=== PATIENT | female | born 1970 | race Caucasian/White ===

== ENCOUNTER 2019-05-08 15:52 | Outpatient (REF) | payer OTHER, SELFPAY ==
--- NOTE | 2019-05-08 15:15 | PAPFT_PTH ---
PATIENT: Alma Delia Fleming LOC: [facility] U#:[id number] AGE/SX: 49/F ROOM: RE05/08/[address]: Marlena Jerry MD : 1970 BED: DIS: 05/08/2019 SPEC #: [id number] RECD: 05/09/19 12:48 STATUS: GEREMIAS REQ #: [id number] CINTHYA: 05/08/19 15:[address]: Marlena Wayne DEPT: [facility] Cytology RECD BY: Sue Wallis ENTERED: 05/09/19 12:48 SP TYPE: PAPFT OTHR DR: Maikel Worthy, DO Tissues: 1 - CX/ENDOCX FOR PAP SMEARS Procedures: PAP THIN PREP/UVM Screening HPV DNA PROBE Comments: [id number]
== END 2019-05-08 16:12 ==
LOC: LBN 15:52
PROVIDERS: PCP Emergency Medicine; Visit Provider Internal Medicine
DX: Z12.4 Encounter for screening for malignant neoplasm of cervix (principal)
CPT/HCPCS: 88142; 87624

== ENCOUNTER 2019-05-16 07:15 | Outpatient (CLI) | payer OTHER, SELFPAY ==
[2019-05-16 08:46] LABS: Abs Immature Grans 0.01 k/cumm (0.0-0.09); Absolute Basophil Count 0.03 k/cumm (0.0-0.2); Absolute Eosinophil Count 0.08 k/cumm (0.0-0.7); Absolute Lymphocyte Count 1.41 k/cumm (1.2-3.4); Absolute Monocyte Count 0.42 k/cumm (0.11-0.7); Absolute Neutrophil Count 3.75 k/cumm (1.2-6.7); Basophils % 0.5; Eosinophils % 1.4; HGB 14.5 g/dL (12.0-15.5); Immature Grans % 0.2 %; Lymphocytes % 24.7; Mean Corpuscular Hemoglobin 30.5 pg (27.0-33.0); Mean Corpuscular Volume 92.4 fL (80-95); Mean Platelet Volume 9.8 fL (8.0-11.0); Monocytes % 7.4; Neutrophils % 65.8; Platelet Count 331 x1000/uL (130-400); RBC 4.76 m/cumm (4.00-5.20); RBC Distribution Width 12.7 % (11.7-14.6)
[2019-05-16 09:29] LABS: ESR 16 mm/hr (0-30)
[2019-05-16 09:43] LABS: ALT 18 U/L (14-59); AST 12 U/L (15-37); Albumin 3.9 g/dL (3.4-5.0); Alkaline Phosphatase 130 U/L (46-116); Anion Gap 10.9 mmol/L (3-11); BUN 16 mg/dL (7-18); Bilirubin, Total 0.4 mg/dL (0.2-1.0); CO2 27.1 mmol/L (21.0-32.0); CREATININE 0.89 mg/dL (0.55-1.02); Calcium 9.5 mg/dL (8.5-10.1); Chloride 105 mmol/L (98-107); Glucose 86 mg/dL (74-106); Potassium 4.1 mmol/L (3.5-5.1); Sodium 143 mmol/L (136-145); Total Protein 7.3 g/dL (6.4-8.2)
== END 2019-05-16 07:35 ==
PROVIDERS: PCP Emergency Medicine; Visit Provider Internal Medicine
DX: R19.00 Intra-abdominal and pelvic swelling, mass and lump, unspecified site (principal); R50.9 Fever, unspecified
CPT/HCPCS: 36415; 80053; 85652; 85025

== ENCOUNTER 2019-05-30 01:02 | Outpatient (CLI) | payer OTHER, SELFPAY ==
--- NOTE | 2019-05-30 08:28 | DI.CT_ITS ---
EXAM: CT ABDOMEN PELVIS WO/W CLINICAL HISTORY: PELVIC MASS,HEMATURIA, R31.9 TECHNIQUE: The exam was performed according to the usual protocol. COMPARISON: No exams were available for comparison FINDINGS: CT examination of the abdomen and pelvis was performed prior to and following intravenous infusion of 100 cc of Omnipaque 350 and ingestion of dilute barium. Noncontrast scan shows no evidence of urinary tract calcification. Images obtained through the lung bases are unremarkable. The liver, spleen, and pancreas appear norm al. Gallbladder and bile ducts are CT normal. Abdominal aorta is of normal diameter and no major va scular abnormality is seen. No significant abdominal wall hernia. No abdominal or pelvic adenopathy . Appendix is normal. No evidence of diverticulitis or bowel obstruction. No free fluid identified in the pelvis. Uterus is markedly enlarged, heterogeneous, and lobular in a ppearance, with multiple dense calcifications consistent with uterine fibroid. No ovarian mass ident ified by CT criteria. The cervix may be enlarged, fibroid versus other etiology. No abnormality of the recto sigmoid seen. No abnormality of the urinary bladder. IMPRESSION: Markedly enlarged uterus with appearance consistent with multiple uterine fibroids by CT criteria. N onspecific enlargement of the cervix, fibroid versus other neoplastic etiology not excluded. CUSTOMER SERVICE LEADER consult recommended and additional evaluation with ultrasound and/or MR of the pelvis may be cons idered to further characterize the uterine and cervical abnormalities and exclude ovarian pathology.
[2019-05-30] MEDS: Omnipaque 350 MG/ML 100 ML BTL IJ (08:38)
[2019-05-30] MEDS: Omnipaque 350 MG/ML 50 ML BTL IJ (08:40)
== END 2019-05-30 01:22 ==
PROVIDERS: PCP Emergency Medicine; Visit Provider Internal Medicine
DX: R10.2 Pelvic and perineal pain (principal); R19.09 Other intra-abdominal and pelvic swelling, mass and lump; R31.9 Hematuria, unspecified; N85.2 Hypertrophy of uterus; D25.9 Leiomyoma of uterus, unspecified
CPT/HCPCS: 74178; J3490; Q9967

== ENCOUNTER 2019-06-27 08:22 | Outpatient (CLI) | payer OTHER, SELFPAY ==
[2019-06-27 08:51] LABS: HCT 42.4 % (36.0-46.0); HGB 14.3 g/dL (12.0-15.5); Mean Corp. HGB Concentration 33.7 g/dL (32.0-36.0); Mean Corpuscular Hemoglobin 30.8 pg (27.0-33.0); Mean Corpuscular Volume 91.4 fL (80-95); Mean Platelet Volume 9.6 fL (8.0-11.0); Platelet Count 267 x1000/uL (130-400); RBC 4.64 m/cumm (4.00-5.20); RBC Distribution Width 12.8 % (11.7-14.6); White Blood Cell Count 5.41 k/cumm (4.4-10.8)
== END 2019-06-27 08:42 ==
PROVIDERS: PCP Emergency Medicine; Visit Provider Obstetrics & Gynecology Gynecology
DX: D25.9 Leiomyoma of uterus, unspecified (principal); Z01.818 Encounter for other preprocedural examination; Z01.812 Encounter for preprocedural laboratory examination
CPT/HCPCS: 36415; 85027; 86850; 86900; 86901

== ENCOUNTER 2019-07-05 16:49 | Observation (INO) | payer OTHER, SELFPAY ==
[2019-06-27 07:49] VITALS: BP 137/77; PULSE 77; RESP 18; TEMP 36.2; O2SAT 97
[2019-07-05] VITALS (13 sets, daily range): BP systolic 80–148; BP diastolic 46–84; PULSE 68–90; RESP 15–22; TEMP 35–37.1; O2SAT 95–100
[2019-07-05] MEDS: Lactated Ringers 1,000 ML 125 ML IV ×3 (09:36→18:22)
[2019-07-05] MEDS: ceFAZolin 2 GM/50 ML BAG IVPB (12:02)
--- NOTE | 2019-07-05 14:50 | UTER_PTH ---
PATIENT: Alma Delia Fleming LOC: U#:[id number] AGE/SX: 49/F ROOM: 214 RE07/05/[address]: Ruby Zelaya : 1970 BED: A DIS: 07/06/2019 SPEC #: [id number] RECD: 07/05/19 16:53 STATUS: GEREMIAS REQ #: [id number] CINTHYA: 07/05/19 14:[address]: Ruby Zelaya DEPT: Surgical Specimen RECD BY: Sue Wallis ENTERED: 07/05/19 16:54 SP TYPE: UTER OTHR DR: Maikel Worthy DO Tissues: 1 - UTERUS W OR W/O OVARIES(NOT TUMOR/PROLAPSE) Procedures: GROSS AND MICRO LEVEL 5 DECALCIFICATION Comments: [id number]
--- NOTE | 2019-07-05 17:52 | ROE_ITS ---
Date of service: 07/05/19 Time of Service: 17:52 Operative Note Operative Note DATE OF PROCEDURE: 07/05/19 PRE-OP DIAGNOSIS: Symptomatic fibroid uterus POST-OP DIAGNOSIS: same PROCEDURE: Laparoscopic-assisted vaginal hysterectomy and bilateral salpingectomy with bladder cystoscopy SURGEON: Ruby Zelaya MENTAL RETARDATION NURSE: Serafin Westfall ANESTHESIA: GETA and other (Nerve block performed by anesthesia to control postop pain) ESTIMATED BLOOD LOSS: 600 PATHOLOGY: other (Cervix uterus fragments of uterine fibroid and fallopian tubes to pathology) COMPLICATIONS: None Patient was transported to: PACU Patient's condition: stable Indications: 49-year-old female with an enlarged uterus becoming increasingly symptomatic preventing her from being comfortable performing activities of daily living. Findings: Normal size uterus with a globular fundal mass consisting of multiple small fibroids. Overall dimensions of the uterus and fibroid approximately 13 cm in length 8 cm in width. 2 small simple appearing follicular cysts on each ovary respectively normal-appearing fallopian tubes. Normal appendix normal upper abdomen. Procedure Description: Patient was taken to the operating room where she was placed in the sitting position and anesthesia performed a nerve block for the purpose of controlling postop pain. The patient was then placed in the dorsal supine position and general endotracheal anesthesia administered without difficulty. She was prepped and draped in the usual sterile fashion a surgical timeout was performed confirmed that she had SCDs in place and that she received preoperative antibiotics. A Aldrich catheter was inserted to gravity drainage bivalve speculum was placed in the vagina and the anterior lip of the cervix was grasped with single-tooth tenaculum a Pelosi uterine manipulator was then inserted into the uterus attached to the single-tooth tenaculum and left in place. Attention was turned to the patient's abdomen where the inferior portion of the umbilicus was infiltrated with quarter percent Marcaine without epinephrine and a vertical incision skin incision was made with a scalpel and the umbilical fold. There is through this incision a varies needle was introduced with a drop in carbon dioxide pressure indicating intra-abdominal placement. A 12 mm Visiport was then inserted through the incision but were unable to initially placed into the abdomen the port was removed and reinserted under direct visuali zation and intra-abdominal placement was confirmed. Patient was placed in Trendelenburg and the abdomen was carefully inspected with the above-noted findings. Under direct visualization two 5 mm trochars were placed approximately 3 cm medial to the left and right superior anterior iliac crests respectively. The right and left ureters were located and noted to be remote from the operative field. 5 mm endoscopic tenaculum was used to grasp the most cephalad portion of the fibroid and a LigaSure electrocautery device was then used to grasp, cauterize and transect the right fallopian tube at the uterine cornua. The site where the endoscopic tenaculum was used to grasp the fibroid bled during the laparoscopic portion of the procedure. The right round ligament and segments of the right broad ligament both anterior and posterior portions was sequentially clamped cauterized and transected to the level of the uterosacral ligaments. The right portion of the vesicouterine peritoneum was incised tented up and gently dissected off of the lower uterine segment approximately half the distance of the lower uterine segment. A similar technique was carried out on the contralateral left fallopian tube, round ligament and left broad ligament. The vesicouterine peritoneum was incised and gently dissected off of the lower uterine segment. It was decided to proceed with the vaginal portion of the case. The endoscopic instruments were removed and the trochars left in place pneumoperitoneum was reduced and the uterine manipulator was removed from the uterus. A weighted vaginal speculum was inserted into the vagina and the body of the cervix was infiltrated with 1% lidocaine with a dilute solution of epinephrine in a circumferential fashion. Bovie electrocautery device was then used to incise along the site that had been infiltrated. This allowed blunt dissection into the posterior cul-de-sac a weighted vaginal speculum was inserted through this incision. The vesicle cervical fascia was bluntly dissected off of the anterior of the cervix until sufficient mobilization had allowed the anterior cul-de-sac to be entered sharply with Metzenbaum scissors. Through this incision a right angle retractor was placed to retract the bladder away from the operative field. The right uterosacral ligament was clamped transected and suture-ligated and held followed by the right broad ligament. Similar procedure was carried out on the contralateral uterosacral ligament and broad ligament. The left uterine cornua was clamped transected and suture-ligated. The pedicle was noted to be hemostatic similar technique was carried out on the contralateral uterine cornua both the right and left fallopian tubes were located clamped, suture ligated, and transected. This allowed direct access to the fundal fibroid which was then grasped with single-tooth tenaculums and subsequently morcellated with a scalpel with wedge dissections of fibroid tissue removed sequentially with care taken to protect the vaginal anterior and posterior and lateral vaginal turcios. Shortly after the morcellation began the uterus was detached from the body of the fibroid and passed off of the operative field. The remaining time was spent in scalpel morcellation of the uterine fibroid. Once fibroid had been removed in its entirety the uterosacral and broad ligament pedicles were inspected and found to be hemostatic. The vaginal cuff was closed with a running lock suture of 0 Vicryl in a vertical fashion. At the level of the uterosacral ligaments the uterosacral ligament pedicle was suture-ligated to the upper portion of the uterosacral ligament using the previously sutured 0 Vicryl. The remaining vaginal cuff was closed with a continuous suture of 0 Vicryl in a locked fashion. Indigocarmine was administered to the IV bladder cystoscopy was performed despite ample time for in the indigocarmine to be observed we were unable to note the E flux of indigocarmine through the right and left urethral orifices. There was however evidence of reflux from both orifices as noted with cystoscopy. Aldrich catheter was reinserted to gravity drainage Attention was then turned to the abdomen after sterile gloves have been changed pneumoperitoneum was reestablished and the laparoscope was reinserted and the abdominal and pelvic cavity carefully inspected. The vaginal cuff was closed and hemostatic as was the right and left adnexal pedicles. There was clotted blood along the omentum at the liver margin that was aspirated irrigated but no evidence of active bleeding. Same was true of the pelvis which is copiously irrigated with normal saline and noted to be hemostatic. Under direct visualizations both 5 mm trochars were removed and pneumoperitoneum reduced 12 mm umbilical trocar removed and the fascia reapproximated with 2 sutures of 0 Vicryl the skin of all trocar sites was closed with a subcuticular closure of 3- 0 Monocry and covered with skin glue. Patient was then placed in the dorsal supine position awakened extubated and transported to recovery area in stable condition all sponge lap needle counts correct x2
[2019-07-05] MEDS: Ketorolac 30 MG/ML VIAL IVP (19:29)
[2019-07-05] MEDS: Docusate Sodium 100 MG CAP PO (19:30)
[2019-07-05] MEDS: Normal Saline Flush 10 ML SYR IV (19:30)
--- NOTE | 2019-07-05 20:59 | NUR.NOTE ---
Nursing Note: At 1740 hrs., Pt received from PACU staff post op vaginal hysterectomy assisted by laparoscopy Pale looking, verbalized seeing double vision. B/P was low initial result was 88/54., drowsy and with slurred speech noted. turkish line attendant was notified. NS IV Bolus of 500 cc completed. Spouse was on bedside. Pt able to moved lower extremities w/out pain or discomfort. Continuous POx inplaced.. At 1830 , B/P 91/53.,pt is more awake, able to opened both eyes.abdominal trochar sites is , dry and intact. No vaginal bleeding offered. Continue to monitor.
[2019-07-06] VITALS (8 sets, daily range): BP systolic 106–119; BP diastolic 56–70; PULSE 70–80; RESP 16–18; TEMP 36.6–37.2; O2SAT 96–100
[2019-07-06] MEDS: Normal Saline Flush 10 ML SYR IV ×2 (00:10→06:02)
[2019-07-06] MEDS: Ketorolac 30 MG/ML VIAL IVP ×2 (00:11→06:02)
[2019-07-06] MEDS: Lactated Ringers 1,000 ML 125 ML IV (01:55)
[2019-07-06 07:06] LABS: HCT 34.7 % (36.0-46.0); HGB 11.3 g/dL (12.0-15.5); Mean Corp. HGB Concentration 32.6 g/dL (32.0-36.0); Mean Corpuscular Hemoglobin 29.8 pg (27.0-33.0); Mean Corpuscular Volume 91.6 fL (80-95); Mean Platelet Volume 10.4 fL (8.0-11.0); Platelet Count 228 x1000/uL (130-400); RBC 3.79 m/cumm (4.00-5.20); RBC Distribution Width 12.5 % (11.7-14.6); White Blood Cell Count 16.07 k/cumm (4.4-10.8)
[2019-07-06 07:23] LABS: ALT 15 U/L (14-59); AST 14 U/L (15-37); Albumin 3.2 g/dL (3.4-5.0); Alkaline Phosphatase 100 U/L (46-116); BUN 12 mg/dL (7-18); Bilirubin, Total 0.3 mg/dL (0.2-1.0); CREATININE 0.87 mg/dL (0.55-1.02); Calcium 8.5 mg/dL (8.5-10.1); Chloride 107 mmol/L (98-107); Glucose 107 mg/dL (74-106); Sodium 141 mmol/L (136-145); Total Protein 6.1 g/dL (6.4-8.2)
[2019-07-06] MEDS: Docusate Sodium 100 MG CAP PO (08:29)
[2019-07-06] MEDS: Acetaminophen 500 MG TAB PO (08:29)
--- NOTE | 2019-07-06 09:35 | DSE_ITS ---
Date of service: 07/06/19 Time of Service: 09:35 DS: Diagnosis Discharge Diagnosis (1) Uterine fibroid: Status: Acute (2) History of laparoscopic-assisted vaginal hysterectomy: Status: Acute (3) H/O bilateral salpingectomy: Status: Acute Discharge Plan Disposition Patient Disposition: HOME Condition: Good Discharge Details Reason For Visit: LAPAROSCOPIC ASSISTED VAGINAL HYSTERECTOMY Admit Date/Time: 07/05/19 16:49 Admit Provider: Ruby Zelaya Attending Provider: Ruby Zelaya Primary Care Provider: Maikel Worthy Hospital Course Hospital Course: Patient is a 49-year-old G0 female admitted the morning of surgery for a laparoscopic-assisted vaginal hysterectomy uterine fibroid morcellation through the vagina and the bilateral salpingectomy. Surgery was uncomplicated the fibroid specimen was removed and multiple small pieces. Ovaries ovaries were grossly normal. Postop course was uncomplicated. She was tolerating a regular diet ambulating without difficulty and voiding spontaneously at the time of discharge. Pain was well controlled with NSAIDs. Plan at this time is to discharge her to home follow-up in the office in 2 weeks with the plan for prescription of Percocet 5/325 1 to 2 tablets every 6 hours as needed for pain #7 dispensed ibuprofen 600 mg every 6 hours as needed for pain. Home Meds and New Rx's Prescriptions: No Action magnesium 250 mg tablet 500 mg PO BID RF: 0 d-mannose Powder PO DAILY RF: 0 lysine [L-Lysine] 500 mg Tablet 1 mg PO DAILY RF: 0 Discharge Instructions Instructions: Laparoscopic Hysterectomy (DC) Stand Alone Forms: [facility] Post Gynecology Surgery, Nursing Discharge Form Referrals: Ruby Zelaya MD [ [facility] STAFF PHYSICIAN] - (appointment made directly with patient) Activity:: Activity as Tolerated Equipment/Supplies:: No Equipment Needed Diet:: As Tolerated Discharge Orders Discharge Orders: Discharge Order (Routine); Ordered 07/06/19 Ordered By: Ruby Zelaya Discharge Data Discharge Date/Time-TO BE ENTERED AT DEPARTURE: 07/06/19 10:51 DS: Summary Status at Discharge Functional status at discharge: independent ambulation Overall status at discharge: patient is back to baseline Mental Status: mental status grossly normal Speech and Movement: speech and movement normal Mood: congruent mood Affect: normal affect Exam Psych Mental Status: mental status grossly normal Speech and Movement: speech and movement normal Mood: congruent mood Affect: normal affect DS: Data Vitals/I&O Vitals and I&O: Vital Signs Temperature 99.0 F 07/06/19 07:37 Temperature Source Tympanic 07/06/19 07:37 Pulse 70 07/06/19 07:37 Pulse Rhythm Regular 07/06/19 00:15 Respiratory Rate 17 07/06/19 07:37 Respiratory Effort 07/06/19 00:15 Respiratory Depth Normal 07/06/19 00:15 Respiratory Pattern Normal 07/06/19 00:15 Blood Pressure 119/70 07/06/19 07:37 Pulse Oximetry 100 07/06/19 07:37 Respiratory End-tidal CO2 32 07/05/19 17:30 Oxygen Delivery Method Room Air 07/06/19 07:37 Oxygen Flow Rate 0 07/06/19 07:37 Pain Level 2 07/06/19 08:29 Comment 07/06/19 06:05 Intake & Output 07/05/19 07/05/19 07/06/19 11:59 23:59 11:59 Intake Total 2049 1200 / 1200 Output Total 2099 1375 / 1375 Balance -50 / -50 -175 / -175 Weight 151 lb 3.794 oz Intake: IV 2049 Oral 1200 / 1200 Output: Urine 1500 / 1500 1375 / 1375 Estimated Blood Loss 600 / 600 Other: Urine Color Yellow Pale Urine Appearance Clear Clear Comment blueish green tint d/t dye. very light blue from dye. 1st void after rush out Emesis Description None Voiding Methods Toilet Data Completed and Pending Labs on day of discharge: Labs from last 24 hours 07/06/19 07/06/19 06:32 06:32 WBC 16.07 H RBC 3.79 L Hgb 11.3 L Hct 34.7 L MCV 91.6 MCH 29.8 MCHC 32.6 RDW 12.5 Plt Count 228 MPV 10.4 Sodium 141 Potassium 4.0 Chloride 107 Carbon Dioxide 28.0 Anion Gap 6.0 BUN 12 Creatinine 0.87 Estimated GFR/1.73 m2 >= 60.00 Glucose 107 H Calcium 8.5 Total Bilirubin 0.3 AST 14 L ALT 15 Alkaline Phosphatase 100 Total Protein 6.1 L Albumin 3.2 L [facility] Medical History History of asthma (Acute) Uterine fibroid (Acute) Enlarged. Pt wants hysterectomy Surgical History (Updated 07/06/19 @ 09:36 by Ruby Zelaya MD) H/O bilateral salpingectomy (Acute) At the time of the vaginal hysterectomy History of laparoscopic-assisted vaginal hysterectomy (Acute) Hx of tubal ligation (Chronic) Hx of wisdom tooth extraction (Acute) Social History Smoking/Tobacco Use Status: Never Alcohol Intake: current Alcohol Intake frequency: holidays/special occasions only Alcohol type: beer Drug use: Never Substance use type: does not use Do you feel safe at home: Yes Do you feel safe in your relationship?: Yes
== END 2019-07-06 10:51 | disposition home or self-care (01) ==
LOC: MS 18:00
PROVIDERS: Admitting Provider Obstetrics & Gynecology Gynecology; PCP Emergency Medicine; Visit Provider Obstetrics & Gynecology Gynecology
PROC: 0UT9FZZ Resection of Uterus, Via Natural or Artificial Opening With Percutaneous Endoscopic Assistance (ICD-10-PCS; CPT 58554; principal; 2019-07-05 09:30)
DX: D25.9 Leiomyoma of uterus, unspecified (principal); N80.0 Endometriosis of uterus; N83.8 Other noninflammatory disorders of ovary, fallopian tube and broad ligament; N70.11 Chronic salpingitis; G89.18 Other acute postprocedural pain; N83.02 Follicular cyst of left ovary; N83.01 Follicular cyst of right ovary
CPT/HCPCS: 58554; 36415; 80053; 85027; NC; 88307; 88311; G0378; J0690; J1100; J1885; J1941; J2001; J2250; J2405; J2704; J3010

== ENCOUNTER 2020-10-19 12:12 | Outpatient (REF) | payer BC, SELFPAY ==
--- NOTE | 2020-10-19 12:15 | DI.RAD_ITS ---
Exam(s) XR LUMBAR SPINE COMPLETE EXAM: XR LUMBAR SPINE COMPLETE CLINICAL HISTORY: lumbar pain. TECHNIQUE: 2D digital imaging was performed. COMPARISON: No exams were available for comparison FINDINGS: There are 5 lumbar type vertebral bodies. No spondylolysis or spondylolisthesis. At L4-5, there is disc space narrowing, subchondral sclerosis and endplate osteophytes. Degenerative changes of the fa cets are seen at L4-5 and L5-S1. No acute fracture or subluxation is present. Soft tissues are unre markable. IMPRESSION: Degenerative changes in the lumbar spine. DATA REPOSITORY: RADIATION DOSE DELIVERED:
--- NOTE | 2020-10-19 13:25 | DI.VRAD_ITS ---
PROCEDURE INFORMATION: Exam: XR Lumbosacral Spine Exam date and time: 10/19/2020 12:26 PM Age: 50 years old Clinical indication: Other: Lumbar pain TECHNIQUE: Imaging protocol: XR of the lumbosacral spine. Views: 4 or 5 views. COMPARISON: No relevant images were readily available for comparison purposes. FINDINGS: Bones/joints: Lumbar vertebral body heights are well maintained. Alignment is well preserved without significant listhesis. Bony degenerative changes are minimal. Soft tissues: Unremarkable. IMPRESSION: Minimal bony degenerative changes lumbar spine without acute findings evident. Dictated and Authenticated by: Clive Marrero MD. Ordering:KAREN Penaloza MD
== END 2020-10-19 12:32 ==
LOC: DI 12:12
PROVIDERS: PCP Emergency Medicine; Visit Provider Nurse Practitioner Family
DX: M54.5 Low back pain (principal); M51.36 Other intervertebral disc degeneration, lumbar region; M47.817 Spondylosis without myelopathy or radiculopathy, lumbosacral region
CPT/HCPCS: 72110

== ENCOUNTER 2020-10-19 12:29 | Emergency (ER) | payer SELFPAY ==
--- NOTE | 2020-10-19 12:35 | W.ED.FU ---
Patient was referred to the hospital from urgent care for x-ray. Was accidentally set up in the emergency department for further visit. Patient is not requesting a ED evaluation here but is here for the imaging as was ordered on outpatient basis. She was made aware that she may come to the ER for further evaluation at any time. Patient ultimately entered in error.
== END 2020-10-19 12:35 ==
LOC: ER 12:56
PROVIDERS: PCP Emergency Medicine
DX: Z53.21 Procedure and treatment not carried out due to patient leaving prior to being seen by health care provider (principal)

== ENCOUNTER 2023-03-10 18:29 | Outpatient (REF) | payer OTHER, SELFPAY ==
[2023-03-10 21:07] LABS: Abs Immature Grans 0.01 10^3/uL (0.0-0.06); Absolute Basophil Count 0.04 10^3/uL (0.0-0.2); Absolute Eosinophil Count 0.14 10^3/uL (0.0-0.7); Absolute Lymphocyte Count 2.06 10^3/uL (1.2-3.4); Absolute Monocyte Count 0.49 10^3/uL (0.1-0.8); Absolute Neutrophil Count 4.18 10^3/uL (1.2-6.7); Basophils % 0.6; HCT 42.3 % (36.0-46.0); Immature Grans % 0.1; Lymphocytes % 29.8; MCH 29.5 pg (27.0-33.0); MCHC 33.1 % (32.0-36.0); MCV 89 fL (80-95); MPV 9.9 fL (8.0-11.0); Monocytes % 7.1; Neutrophils % 60.4; Platelet Count 301 10^3/uL (130-400); RBC 4.74 10^6/uL (3.93-5.22); RDW 12.6 % (11.7-14.6); RDW-SD 41.2 fL; WBC 6.92 10^3/uL (4.4-10.8)
[2023-03-10 21:14] LABS: BUN 14 mg/dL (7-18); Calcium 9.9 mg/dL (8.5-10.1); Chloride 104 mmol/L (98-107); Estimated GFR 66.53 (mL/min/1.73m2); Glucose 111 mg/dL (74-106); Potassium 3.9 mmol/L (3.5-5.1); Sodium 140 mmol/L (136-145)
== END 2023-03-10 18:30 | disposition home or self-care (01) ==
LOC: LBN 18:29
PROVIDERS: PCP Nurse Practitioner Family; Visit Provider Nurse Practitioner Family
DX: R10.9 Unspecified abdominal pain (principal); R30.0 Dysuria; R31.9 Hematuria, unspecified
CPT/HCPCS: 80048; 85025; 87480; 87510; 87660

== ENCOUNTER → 2023-04-07 01:23 | Outpatient (CLI) | payer OTHER, SELFPAY ==
--- NOTE | 2023-04-07 07:00 | DI.MAMMO_ITS ---
Exam(s) MAMMO SCREENING EXAM: MAMMO SCREENING CLINICAL HISTORY: screening,Z12.39 TECHNIQUE: Bilateral full field digital CC and MLO mammographic images were obtained with 3D tomosyn thesis and utilizing computer aided detection (CAD). COMPARISON: Available for comparison. FINDINGS: Masses/Architectural Distortion: None seen. Microcalcifications: No suspicious pleomorphic-type are seen. Skin Thickening/Nipple Retraction: None. IMPRESSION: 1. No significant interval change with no specific features of malignancy noted. 2. Unless there is more urgent need, screening mammography is recommended, as per [employer] guidelines. BI-RADS Category 1 - Negative Breast Density - Category B - Scattered areas of fibroglandular density Breast density category C or D implies that the patient has dense breast tissue. Dense breast tissue is very common and is not abnormal but dense breast tissue can make it harder to find cancer on a ma mmogram. Also, dense breast tissue may increase their breast cancer risk. This information about the result of the mammogram report was provided to the patient to raise their awareness. Use this report when you speak with the patient about their risks for breast cancer, which includes their family hist ory. At that time, you may recommend for more screening tests (Ultrasound or MRI) as they might be us eful based on their risk. A negative radiographic report should not delay biopsy if a dominant or clinically suspicious mass is present. Up to ten percent of cancers are not identified on mammography. A negative report may reinforce clinical impression. Adenosis and dense breasts may obscure an underlying neoplasm. False positive reports average 6 to 10%. Patient will receive a letter notifying them of these results.
== END ==
PROVIDERS: PCP Nurse Practitioner Family; Visit Provider Nurse Practitioner Family
DX: Z12.31 Encounter for screening mammogram for malignant neoplasm of breast (principal)
CPT/HCPCS: 77063; 77067

== ENCOUNTER 2024-02-14 17:34 | Outpatient (REF) | payer OTHER, SELFPAY | END 2024-02-14 17:35 | disposition home or self-care (01) | LOC: LBN 17:34 | PROVIDERS: PCP Nurse Practitioner Family; Visit Provider Physician Assistant | DX: N39.0 Urinary tract infection, site not specified (principal); R82.89 Other abnormal findings on cytological and histological examination of urine | CPT/HCPCS: 87077; 87086; 87186 ==

== ENCOUNTER 2025-02-26 11:25 | Outpatient (CLI) | payer OTHER, SELFPAY ==
[2025-02-26 14:49] LABS: Hemoglobin A1C 5.8 % (<5.7)
[2025-02-26 16:51] LABS: Calculated LDL 92 mg/dL (<100); Cholesterol 193 mg/dL (<200); HDL Cholesterol 64 mg/dL (>or=50); TSH (W/Ref FT4) 1.22 uIU/mL (0.36-3.74); Triglyceride 189 mg/dL (<150)
== END 2025-02-26 11:26 | disposition home or self-care (01) ==
LOC: LOS 11:26
PROVIDERS: PCP Nurse Practitioner Family; Visit Provider Nurse Practitioner Family
DX: Z13.220 Encounter for screening for lipoid disorders (principal); Z13.1 Encounter for screening for diabetes mellitus; E03.9 Hypothyroidism, unspecified
CPT/HCPCS: 36415; 80061; 83036; 84443